=== PATIENT | male | born 2000 | race Caucasian/White ===

== ENCOUNTER 2024-09-27 18:28 | Emergency (ER) | payer BC, SELFPAY ==
[2024-09-27 18:35] VITALS: BP 153/84; PULSE 64; TEMP 37; O2SAT 98; BMI 29.0
--- NOTE | 2024-09-27 18:37 | CT_ITS ---
[place] [id number] Patient Name: MARY JANE HARE MRN: [id number] date: 2000 Sex: M Assigned Patient Location: ER Current Patient Location: .[facility] Accession/Order Number: [id number] Exam Date: 09/27/2024 18:47 Report Date: 09/27/2024 20:10 At the request of: ABHIJIT BARNETT Procedure: CT abdomen pelvis wo con EXAM: CT abdomen pelvis wo con HISTORY: Abdominal pain COMPARISON: None. TECHNIQUE: Axial CT imaging was performed through the abdomen and pelvis with intravenous contrast. Multiplanar reformats were performed. Dose reduction techniques were achieved by using automated exposure control and/or adjustment of mA and/or kV according to patient size and/or use of iterative reconstruction technique. FINDINGS: Lung bases: Lung bases are clear. No pleural effusion. GI upper: Unremarkable. Liver: Normal size and contour. Gallbladder: No significant abnormality. No cholelithiasis. Biliary system: No intra or extrahepatic biliary ductal dilatation. Spleen: Normal size. Pancreas: Unremarkable. Adrenal glands: Normal adrenal glands. Kidneys/ureters: Normal contours. No hydronephrosis. No nephrolithiasis or ureterolithiasis. Vessels: No aneurysm. Lymph Nodes: No lymphadenopathy. Small bowel: No wall thickening or dilatation. Colon: No wall thickening or dilatation. Moderate volume stool burden. Appendix: No findings of appendicitis. Peritoneal cavity: No free fluid or pneumoperitoneum. Lower : Unremarkable. Bones: No acute bony abnormality. Soft tissues: No acute finding. Additional findings: None. CT/CT abdomen pelvis wo con IMPRESSION: No acute abnormality. Constipation. Electronically authenticated by: JAD ROJAS Date: 09/27/2024 20:10
--- NOTE | 2024-09-27 18:53 | ED_ITS ---
HPI HPI - General Adult General Chief complaint: Abdominal Pain Stated complaint: Abdominal Pain Time Seen by Provider: 09/27/24 18:31 Source: patient Mode of arrival: walk-in History of Present Illness HPI narrative: This patient is a 24-year-old male who presents to the emergency department at the recommendation of his primary care office for CT scan. Patient states for several weeks he has had intermittent pain in the bilateral lower quadrants of the abdomen as well as in his low back. He states he has had urinary hesitancy but no dysuria or hematuria. He states he has been having normal bowel movement s. He has not had any objective fevers. He states he had a temperature of 99.3 Fahrenheit at the primary care office and was told he had a low-grade fever. He states that his primary care provider placed him on a medication for his symptoms but was concerned he may have kidney stones, they offered to order an outpatient CT scan but told the patient that it might take several weeks to be approved so he should just come to the emergency department to have the CT scan today. Patient states pain is 6/10 at this time. No previous abdominal surgeries. He has no other major medical conditions. Related Data Previous Rx's ?Medication ?Instructions ?Recorded magnesium citrate (Citrate of 296 ml PO DAILY constipation #296 09/27/24 Magnesia oral) mL ondansetron 4 mg disintegrating 4 mg PO Q6H PRN nausea and 09/27/24 tablet vomiting #12 tabs Allergies Allergy/AdvReac Type Severity Reaction Status Date / Time No Known Drug Allergies Allergy Verified 09/27/24 18:35 Opioid HPI Opioid Management Most Recent Opioid Data: Last Pain Scale 6 09/27/24 20:39 09/27/24 Last ED Pain Assessment 09/27/24 20:39 Review of Systems ROS Constitutional Denies: fever or chills Ears, nose, mouth, and throat Denies: throat pain or nasal congestion Cardiovascular Denies: chest pain Respiratory Denies: shortness of breath Gastrointestinal Reports: abdominal pain; Denies: nausea, vomiting, diarrhea or constipation Genitourinary Reports: urinary dribbling Integumentary/Breast Denies: rash Hematologic/Lymphatic Denies: easy bruising or easy bleeding PFSH PFSH Social History Little interest or pleasure in doing things: not at all Feeling down, depressed, or hopeless: not at all Exam Narrative Exam Narrative: Gen.: Awake, alert, in no distress Head: Normocephalic, atraumatic ENT: Moist mucous membranes Respiratory: No respiratory distress Gastrointestinal: Abdomen is soft, nondistended and minimally tender to palpation in the bilateral lower quadrants of the abdomen with no guarding or rebound. No grimacing noted. No CVA tenderness or flank tenderness Extremities: Moves extremities equally Psych: Normal mood and affect Neuro: No focal neuro deficit Skin: Warm, dry, intact Constitutional Vital Signs, click to edit/add: Last Vital Signs Temp 98.6 F 09/27/24 18:35 Pulse 64 09/27/24 20:36 Resp 16 09/27/24 20:36 BP 127/64 09/27/24 20:36 Pulse Ox 96 09/27/24 20:36 O2 Del Method Room Air 09/27/24 20:36 Course Vital Signs Vital signs: Vital Signs Temperature 98.6 F 09/27/24 18:35 Pulse Rate 64 09/27/24 18:35 Respiratory Rate 18 09/27/24 18:35 Blood Pressure 153/84 H 09/27/24 18:35 Pulse Oximetry 98 09/27/24 18:35 Oxygen Delivery Method Room Air 09/27/24 18:35 Temperature 98.6 F 09/27/24 18:35 Pulse Rate 64 09/27/24 20:36 Respiratory Rate 16 09/27/24 20:36 Blood Pressure 127/64 09/27/24 20:36 Pulse Oximetry 96 09/27/24 20:36 Oxygen Delivery Method Room Air 09/27/24 20:36 Medical Decision Making MDM Narrative Medical decision making narrative: This patient was sent to the emergency department to expedite CT scanning from the primary care office. abdomen is soft and benign in the emergency department. Patient had no episodes of emesis in the emergency department. Vital signs are stable. Labs are unremarkable. Pharmacy records show the patient was prescribed Macrobid from the primary care office for an unknown reason as the CT shows constipation and urine specimen is unremarkable. He is placed on magnesium citrate and Zofran for home. Given instructions for constipation for home. Return to the ER if symptoms change or worsen. SHARED APC VISIT, PHYSICIAN ATTESTATION: [id number] I performed a substantive part of the MDM during the patient?s E/M visit. I personally evaluated and examined the patient. I personally made or approved the documented management plan and acknowledge its risk of complications. Medical Records Medical records reviewed: Yes I reviewed the patient's medical records Lab Data Lab results reviewed: Yes I reviewed the patient's lab results Labs: Lab Results 09/27/24 09/27/24 Range/Units 18:47 19:25 WBC 5.3 (4.0-11.0) 10^3/uL RBC 4.76 (4.70-6.10) 10^6/uL Hgb 14.4 (14.0-18.0) g/dL Hct 42.8 (42.0-54.0) % MCV 89.9 (80.0-94.0) fL MCH 30.3 (25.9-34.0) pg MCHC 33.6 (29.9-35.2) g/dL RDW 12.2 (11.0-15.0) % Plt Count 346 (150-450) 10^3/uL MPV 8.9 L (9.5-13.5) fL Neut % (Auto) 51.3 (43.0-75.0) % Lymph % (Auto) 37.9 (20.5-60.0) % [place] % (Auto) 6.9 (1.7-12.0) % Eos % (Auto) 2.9 (0.9-7.0) % Baso % (Auto) 1.0 (0.2-2.0) % Neut # (Auto) 2.7 (1.4-6.5) 10^3/uL Lymph # (Auto) 2.0 (1.2-3.8) 10^3/uL [place] # (Auto) 0.4 (0.3-0.8) 10^3/uL Eos # (Auto) 0.2 (0.0-0.7) 10^3/uL Baso # (Auto) 0.1 (0.0-0.1) 10^3/uL Abs Immat Gran (auto) 0.00 (0.00-0.03) 10^3/uL Imm/Tot Granulo (auto) 0.0 (0.0-0.5) % Sodium 138 (136-145) mmol/L Potassium 4.1 (3.5-5.1) mmol/L Chloride 105 (98-107) mmol/L Carbon Dioxide 27.7 (21.0-32.0) mmol/L Anion Gap 9.4 BUN 13.0 (7.0-18.0) mg/dL Creatinine 0.98 (0.70-1.30) mg/dL Est GFR ( Amer) >60 (>=60 mL/min/1.73m^2) Est GFR (Non-Af Amer) >60 (>=60 mL/min/1.73m^2) BUN/Creatinine Ratio 13.3 Glucose 89 (74-106) mg/dL Calcium 9.0 (8.5-10.1) mg/dL Total Bilirubin 0.9 (0.2-1.0) mg/dL AST 27 (15-37) U/L ALT 30 (16-63) U/L Alkaline Phosphatase 62 (46-116) U/L Total Protein 7.5 (6.4-8.2) g/dL Albumin 4.1 (3.4-5.0) g/dL Globulin 3.4 g/dL Albumin/Globulin Ratio 1.2 Lipase 35.0 (16.0-77.0) U/L Urine Color Lt. yellow (YELLOW) Urine Clarity Clear (CLEAR) Urine pH 6.5 (5.0-9.0) Ur Specific [place] 1.025 (1.005-1.025) Urine Protein Negative (NEG/TRACE) mg/dL Urine Glucose (UA) Negative (NEGATIVE) mg/dL Urine Ketones Negative (NEGATIVE) mg/dL Urine Occult Blood Negative (NEGATIVE) Urine Nitrite Negative (NEGATIVE) Urine Bilirubin Negative (NEGATIVE) Urine Urobilinogen 0.2 (0.2-1.0) EU/dL Ur Leukocyte Esterase Negative (NEGATIVE) Urine RBC 0-2 (0-2) #/HPF Urine WBC 0-2 A (NONE SEEN) #/HPF Ur Squamous Epith Cells None seen (NONE/RARE) #/LPF Urine Crystals None seen (None Seen) #/HPF Amorphous Sediment Many Urine Bacteria Small A (NONE SEEN) #/HPF Urine Casts None seen (NONE SEEN) #/LPF Urine Mucus None seen (NONE SEEN) Ur Culture Indicated? Yes Imaging Data CT scan - abdomen: Attestation: I have reviewed the pertinent imaging results. Radiologist's impression: ITS Impressions Abdomen/Pelvis CT 09/27/24 18:37 IMPRESSION: No acute abnormality. Constipation. Electronically authenticated by: JAD ROJAS Date: 09/27/2024 20:10 Discharge Plan Discharge Chief Complaint: Abdominal Pain Clinical Impression: Abdominal pain, Constipation Patient Disposition: Home, Self-Care Time of Disposition Decision: 20:58 Condition: Good Prescriptions / Home Meds: New ondansetron 4 mg tablet,disintegrating 4 mg PO Q6H PRN (Reason: nausea and vomiting) Qty: 12 0RF magnesium citrate [Citrate of Magnesia] Solution 296 ml PO DAILY Qty: 296 0RF Rx Instructions: Take half of the bottle with 8 oz of water, take the other half after 1 hour with 8 oz of water Print Language: [place] Instructions: Constipation (ED), Abdominal Pain (ED) Referrals: Liliana Escobar [employer] [Primary Care Provider] - 1 week
[2024-09-27] MEDS: KETOROLAC TROMETHAMINE 30 MG/ML VIAL IVP (19:28)
[2024-09-27 19:34] LABS: Bilirubin Urine NEGATIVE (NEGATIVE); Blood Urine NEGATIVE (NEGATIVE); Clarity Urine CLEAR (CLEAR); Color Urine LT. YELLOW (YELLOW); Glucose Urine UA NEGATIVE (NEGATIVE); Ketones Urine NEGATIVE (NEGATIVE); Leukocyte Esterase Urine NEGATIVE (NEGATIVE); Nitrite Urine NEGATIVE (NEGATIVE); Protein Urine NEGATIVE (NEG/TRACE); Specific Gravity Urine 1.025 (1.005-1.025); Urobilinogen Urine 0.2 EU/dL (0.2-1.0); pH Urine 6.5 (5.0-9.0)
[2024-09-27 19:42] LABS: Bacteria Urine SMALL #/HPF (NONE SEEN); Mucus Urine NONE SEEN (NONE SEEN); RBC Urine 0-2 #/HPF (0-2); Squamous Epithelial Cell Urine NONE SEEN #/LPF (NONE/RARE); WBC Urine 0-2 #/HPF (NONE SEEN)
[2024-09-27 19:43] LABS: Amorphous Sediment Urine MANY; Cast Seen? NONE SEEN #/LPF (NONE SEEN); Crystals Seen? None Seen #/HPF (None Seen); Urine Culture Indicated YES
[2024-09-27 20:17] LABS: Basophils Absolute Auto 0.1 10^3/uL (0.0-0.1); Eosinophils Absolute Auto 0.2 10^3/uL (0.0-0.7); Eosinophils Percent Auto 2.9 % (0.9-7.0); Hematocrit 42.8 % (42.0-54.0); Hemoglobin 14.4 g/dL (14.0-18.0); Lymphocytes Percent Auto 37.9 % (20.5-60.0); Mean Corpuscular HGB Conc 33.6 g/dL (29.9-35.2); Mean Corpuscular Hemoglobin 30.3 pg (25.9-34.0); Mean Corpuscular Volume 89.9 fL (80.0-94.0); Mean Platelet Volume 8.9 fL (9.5-13.5); Monocytes Absolute Auto 0.4 10^3/uL (0.3-0.8); Monocytes Percent Auto 6.9 % (1.7-12.0); Neutrophils Absolute Auto 2.7 10^3/uL (1.4-6.5); Neutrophils Percent Auto 51.3 % (43.0-75.0); Platelet Count 346 10^3/uL (150-450); Red Blood Count 4.76 10^6/uL (4.70-6.10); Red Cell Distribution Width 12.2 % (11.0-15.0); White Blood Count 5.3 10^3/uL (4.0-11.0)
[2024-09-27 20:32] LABS: Alanine Aminotransferase 30 U/L (16-63); Albumin Globulin Ratio 1.2; Albumin Level 4.1 g/dL (3.4-5.0); Alkaline Phosphatase 62 U/L (46-116); Anion Gap 9.4; Aspartate Amino Transferase 27 U/L (15-37); BUN Creatinine Ratio 13.3; Bilirubin Total 0.9 mg/dL (0.2-1.0); Carbon Dioxide 27.7 mmol/L (21.0-32.0); Chloride 105 mmol/L (98-107); Estimated GFR (African America >60 (>=60 mL/min/1.73m^2); Estimated GFR (Non-African Ame >60 (>=60 mL/min/1.73m^2); Globulin 3.4 g/dL; Glucose 89 mg/dL (74-106); Potassium 4.1 mmol/L (3.5-5.1); Sodium 138 mmol/L (136-145); Total Protein 7.5 g/dL (6.4-8.2)
[2024-09-27 20:36] VITALS: BP 127/64; PULSE 64; O2SAT 96
== END 2024-09-27 21:10 | disposition home or self-care (01) ==
PROVIDERS: Physician Assistant; Emergency Provider Emergency Medicine; PCP Nurse Practitioner
DX: K59.00 Constipation, unspecified (principal); R10.31 Right lower quadrant pain; R10.32 Left lower quadrant pain
CPT/HCPCS: 36415; 74176; 80053; 81001; 83690; 85025; 87086; 96374; 99285; J1885